=== PATIENT | female | born 1985 | race Caucasian/White ===

== ENCOUNTER 2018-01-29 07:05 | Inpatient (IN) | payer MEDICAID ==
[2018-01-29] MEDS ORDERED: OXYTOCIN 10 UNIT/ML VIAL ONE (07:32)
[2018-01-29] MEDS ORDERED: OXYTOCIN/NORMAL SALINE 20 UNIT/1,000 ML RTUINJ ONE (07:32)
[2018-01-29] MEDS ORDERED: LIDOCAINE 1% INJ-PF (10 MG/ML) 30 ML SDV ONE (07:32)
[2018-01-29] MEDS ORDERED: MISOPROSTOL 0.2 MG TABLET ONE (07:32)
[2018-01-29] MEDS ORDERED: PENICILLIN G-K 5 MILLION UNIT VIAL ONE (07:33)
[2018-01-29] MEDS ORDERED: EPHEDRINE SULFATE INJ 50 MG/1 ML AMPULE ONE (08:45)
[2018-01-29] MEDS ORDERED: FENTANYL/BUPIVACAINE/NS/PF 0 MCG/0 ML RTUINJ EPI ONE (08:45)
[2018-01-29] MEDS ORDERED: BUPIVACAINE HCL 0.5 % INJ/PF 30 ML SDV ONE (08:46)
[2018-01-29] MEDS ORDERED: METHYLERGONOVINE MALEATE INJ/PF 0.2 MG/1 ML AMPULE ONE (09:15)
[2018-01-29] MEDS ORDERED: DIPH/PERTUSS(ACELL)/TETANUS VAC/PF 0.5 ML SYR (>=10YO) IM PRN (09:29)
[2018-01-29] MEDS ORDERED: DIBUCAINE 1% OINTMENT 28 GM TP PRN (09:29)
[2018-01-29] MEDS ORDERED: METHYLERGONOVINE MALEATE INJ/PF 0.2 MG/1 ML AMPULE IM PRN (09:29)
[2018-01-29] MEDS ORDERED: BENZOCAINE/MENTHOL AEROSOL SPRAY 56 ML TOP PRN (09:29)
[2018-01-29] MEDS ORDERED: MEASLES,MUMPS&RUBELLA VACC/PF 0.5 ML VIAL SUBCUT PRN (09:29)
[2018-01-29] MEDS ORDERED: MISOPROSTOL 0.2 MG TABLET PR PRN (09:29)
[2018-01-29] MEDS ORDERED: OXYTOCIN/NORMAL SALINE 20 UNIT/1,000 ML RTUINJ IV PRN (09:29)
[2018-01-29 09:36] LABS: APPEARANCE,URINE CLEAR; BILIRUBIN,URINE NEGATIVE (NEGATIVE); GLUCOSE, URINE NEGATIVE (NEGATIVE); KETONES,URINE NEGATIVE (NEGATIVE); LEUKOCYTE ESTERASE,URINE NEGATIVE (NEGATIVE); NITRITE,URINE NEGATIVE (NEGATIVE); PROTEIN,URINE NEGATIVE (NEGATIVE); URINE SPECIFIC GRAVITY 1.004; UROBILINOGEN,URINE NEGATIVE mg/dL (<2.0)
[2018-01-29 09:37] LABS: COLOR,URINE STRAW
[2018-01-29] MEDS ORDERED: ACETAMINOPHEN WITH CODEINE #3 TABLET ONE (10:08)
[2018-01-29 10:13] LABS: URINE AMPHETAMINES SCREEN NEGATIVE; URINE BARBITURATES SCREEN NEGATIVE; URINE BENZODIAZEPINES SCREEN NEGATIVE; URINE MARIJUANA (THC) SCREEN NEGATIVE; URINE METHADONE SCREEN NEGATIVE; URINE PHENCYCLIDINE SCREEN NEGATIVE
[2018-01-29 10:27] LABS: URINE COCAINE SCREEN NEGATIVE
[2018-01-29 11:26] LABS: ABSOLUTE LYMPHOCYTES (AUTO) 0.9 10^3/uL (0.5-4.7); ABSOLUTE MONOCYTES (AUTO) 0.5 10^3/uL (0.1-1.4); BASOPHILS % (AUTO) 0.1 % (0-2); EOSINOPHILS % (AUTO) 0.1 % (0-6); HEMATOCRIT 34.8 % (36.0-47.0); HEMOGLOBIN 11.7 g/dL (12.0-15.5); LYMPHOCYTES % (AUTO) 5.1 % (13-45); MEAN CORPUSCULAR HEMOGLOBIN 32.6 pg (27.0-33.4); MEAN CORPUSCULAR HGB CONC 33.5 g/dL (32.0-36.0); MEAN CORPUSCULAR VOLUME 97 fl (80-97); MONOCYTES % (AUTO) 3.1 % (3-13); PLATELET COUNT 174 10^3/uL (150-450); RED BLOOD COUNT 3.58 10^6/uL (3.72-5.28); SEGMENTED NEUTROPHILS % (AUTO) 91.6 % (42-78); TOTAL CELLS COUNTED % (AUTO) 100 %; WHITE BLOOD COUNT 17.5 10^3/uL (4.0-10.5)
[2018-01-29] MEDS: PRENATAL VITAMIN W DHA CAPSULE PO SCH (13:55)
[2018-01-29] MEDS: FERROUS SULFATE 325 MG TABLET PO SCH ×2 (13:55→17:37)
[2018-01-29] MEDS: SENNOSIDES/DOCUSATE 8.6-50 MG 1 EACH TABLET PO SCH (13:55)
[2018-01-29] MEDS: DOCUSATE SODIUM 100 MG CAPSULE PO SCH ×2 (13:55→17:37)
[2018-01-29] MEDS: IBUPROFEN 800 MG TABLET PO SCH ×2 (14:01→22:32)
[2018-01-29] MEDS: ACETAMINOPHEN WITH CODEINE #3 TABLET PO PRN (20:13)
[2018-01-30] MEDS: IBUPROFEN 800 MG TABLET PO SCH ×3 (05:49→21:28)
[2018-01-30 07:07] LABS: HEMOGLOBIN 11.1 g/dL (12.0-15.5); MEAN CORPUSCULAR HEMOGLOBIN 33.8 pg (27.0-33.4); MEAN CORPUSCULAR HGB CONC 34.8 g/dL (32.0-36.0); MEAN CORPUSCULAR VOLUME 97 fl (80-97); PLATELET COUNT 180 10^3/uL (150-450); WHITE BLOOD COUNT 9.6 10^3/uL (4.0-10.5)
--- NOTE | 2018-01-30 09:21 | PDOC PROGRESS REPORT ---
Subjective Progress Note for:: 01/30/18 Subjective:: Patient states that she feels good; decreasing lochia. She denies shortness of breath, fever/chills, nausea/vomiting and chest pain. Patient is ambulate and voiding without difficulty. Reason For Visit: Physical Exam - Physical Exam Vital Signs: Temp Pulse Resp BP Pulse Ox 98.1 F 66 17 117/69 99 01/30/18 07:52 01/30/18 07:52 01/30/18 07:52 01/30/18 07:52 01/30/18 07:52 Intake & Output 01/29/18 01/30/18 01/31/18 06:59 06:59 06:59 Weight 81.6 kg General appearance: PRESENT: no acute distress Respiratory exam: PRESENT: clear to auscultation caterina GI/Abdominal exam: PRESENT: normal bowel sounds, soft - Fundus is firm and below umbilicus Extremities exam: ABSENT: calf tenderness, clubbing, full ROM, joint swelling, pedal edema, tenderness, +1 edema, +2 edema, other Result Laboratory Results: 01/30/18 06:43 01/29/18 01/29/18 01/29/18 07:19 11:00 11:00 WBC 17.5 H RBC 3.58 L Hgb 11.7 L Hct 34.8 L MCV 97 MCH 32.6 MCHC 33.5 RDW 13.0 Plt Count 174 Seg Neutrophils % 91.6 H Lymphocytes % 5.1 L Monocytes % 3.1 Eosinophils % 0.1 Basophils % 0.1 Absolute Neutrophils 16.0 H Absolute Lymphocytes 0.9 Absolute Monocytes 0.5 Absolute Eosinophils 0.0 Absolute Basophils 0.0 Urine Color STRAW Urine Appearance CLEAR Urine pH 7.0 Ur Specific [place] 1.004 Urine Protein NEGATIVE Urine Glucose (UA) NEGATIVE Urine Ketones NEGATIVE Urine Blood NEGATIVE Urine Nitrite NEGATIVE Ur Leukocyte Esterase NEGATIVE Blood Type A POSITIVE Antibody Screen NEGATIVE 01/30/18 06:43 WBC 9.6 RBC 3.30 L Hgb 11.1 L Hct 32.0 L MCV 97 MCH 33.8 H MCHC 34.8 RDW 13.0 Plt Count 180 Seg Neutrophils % Lymphocytes % Monocytes % Eosinophils % Basophils % Absolute Neutrophils Absolute Lymphocytes Absolute Monocytes Absolute Eosinophils Absolute Basophils Urine Color Urine Appearance Urine pH Ur Specific [place] Urine Protein Urine Glucose (UA) Urine Ketones Urine Blood Urine Nitrite Ur Leukocyte Esterase Blood Type Antibody Screen Assessment & Plan - Diagnosis (1) Delivery normal Is this a current diagnosis for this admission?: Yes (2) Limited care in third trimester Is this a current diagnosis for this admission?: Yes (3) Smoker Is this a current diagnosis for this admission?: Yes - Time Time Spent with patient: Less than 15 minutes Smoking Cessation Education: 3 to 10 minutes Medications reviewed and adjusted accordingly: Yes Within: within 48 hours - Plan Summary Plan Summary: Plan: 1. Continue care
[2018-01-30] MEDS: PRENATAL VITAMIN W DHA CAPSULE PO SCH (11:02)
[2018-01-30] MEDS: SENNOSIDES/DOCUSATE 8.6-50 MG 1 EACH TABLET PO SCH (11:02)
[2018-01-30] MEDS: DOCUSATE SODIUM 100 MG CAPSULE PO SCH ×2 (11:03→18:31)
[2018-01-30] MEDS: FERROUS SULFATE 325 MG TABLET PO SCH ×2 (11:03→18:31)
[2018-01-30] MEDS: ACETAMINOPHEN WITH CODEINE #3 TABLET PO PRN ×2 (11:18→21:30)
[2018-01-31] MEDS: IBUPROFEN 800 MG TABLET PO SCH ×2 (05:21→15:33)
[2018-01-31] MEDS: ACETAMINOPHEN WITH CODEINE #3 TABLET PO PRN ×3 (07:09→15:33)
--- NOTE | 2018-01-31 09:25 | PDOC DISCHARGE SUMMARY ---
Final Diagnosis Discharge Date: 01/31/18 - PP Day #2, doing well, breast and bottle feeding. A+ , rubella Immune - Final Diagnosis (1) Delivery normal Is this a current diagnosis for this admission?: Yes (2) Limited care in third trimester Is this a current diagnosis for this admission?: Yes (3) Smoker Is this a current diagnosis for this admission?: Yes Discharge Data - Discharge Medication Prescriptions: Ibuprofen [Motrin 800 mg Tablet] 800 mg PO Q8 #60 tablet Home Medications: No122/Iron/Folic Acid [ Multi Tablet] 1 each PO DAILY 01/29/18 Ibuprofen [Motrin 800 mg Tablet] 800 mg PO Q8 #60 tablet 01/31/18 Reason(s) for Admission: Onset of Labor Procedures: Ultrasound Intrapartum Procedure(s): Spontaneous Vaginal Delivery - Diagnosis Test Laboratory: Temp Pulse Resp BP Pulse Ox 97.8 F 69 17 127/71 H 97 01/31/18 07:36 01/31/18 07:36 01/31/18 07:36 01/31/18 07:36 01/31/18 07:36 01/29/18 01/29/18 01/30/18 07:19 11:00 06:43 RBC 3.58 L 3.30 L Hgb 11.7 L 11.1 L Hct 34.8 L 32.0 L Urine Opiates Screen NEGATIVE - Discharge information/Instructions Discharge Activity: Activity As Tolerated, Pelvic Rest Discharge Diet: As Tolerated, Regular Disposition: HOME, SELF-CARE Follow up with: [facility] in: 4
[2018-01-31] MEDS: DOCUSATE SODIUM 100 MG CAPSULE PO SCH ×2 (11:06→17:52)
[2018-01-31] MEDS: FERROUS SULFATE 325 MG TABLET PO SCH ×2 (11:06→17:52)
[2018-01-31] MEDS: PRENATAL VITAMIN W DHA CAPSULE PO SCH (11:06)
[2018-01-31] MEDS: SENNOSIDES/DOCUSATE 8.6-50 MG 1 EACH TABLET PO SCH (11:06)
[2018-01-31 12:44] VITALS: BP 114/71
--- NOTE | 2018-02-09 10:24 | Delivery Summary ---
Del Sum A-C Datetime Report Generated by CPN: 02/09/2018 10:23 DELIVERY PERSONNEL DELIVERY PERSONNEL: [id number] Delivery Doctor:: Myrtle Kay CNM Labor and Delivery Nurse:: OR Staff Labor and Delivery Nurse:: Tara Rodriguez RN Nursery Nurse:: Kyra Ireland RN Nursery Nurse:: Lee WARE LPN Student Observers:: MADELEINE DOMÍNGUEZ, STUDENT Licensing Representative/MUSICAL INSTRUMENT MAKER: Elsie Dawkins CNA II Licensing Representative/MUSICAL INSTRUMENT MAKER: Kyra Miller, BOILERMAKER HELPER MATERNAL INFORMATION Delivery Anesthesia: None Medications After Delivery: Pitocin Bolus-Please Comment; Pitocin Drip 20 Units/1000ml NSS; Cytotec 600mcg Per Rectum/Vagina Maternal Complications: Other Complication Details: NO PNC AFTER 29 WEEKS Provider Comments: from OP to ARNAUD over intact perineum, placed on mothers abd, cord clamped and cut by dad after 2 minutes, Spont delivery of grossly nl intact placenta, cord blood obtained, FFFM, mild uterine atony, cytotec 600mcg, uterine massage, passing some clots with continued atony, massage and Methergine 0,2mg IM baby and mom remains in recovery in stable condition FFFM LABOR SUMMARY EDC: 02/02/2018 00:00 No. Babies in Womb: 1 Attempted: No Labor Anesthesia: None LABOR INFORMATION Reason for Induction: Not Applicable Onset of Labor: 01/29/2018 04:30 Complete Dilatation: 01/29/2018 08:51 Oxytocin: N/A Group B Beta Strep: UNKNOWN Antibiotics # of Doses: 1 Antibiotics Time of Last Dose: 0748 Steroids Given: None Reason Steroids Not Administered: Not Applicable MEMBRANES Membranes Rupture Method: Artificial Rupture of Membranes: 01/29/2018 08:51 Length of Rupture (hr): 0.20 Amniotic Fluid Color: Clear Amniotic Fluid Amount: Small Amniotic Fluid Odor: None STAGES OF LABOR Stage 1 hr: 4 Stage 1 min: 21 Stage 2 hr: 0 Stage 2 min: 12 Stage 3 hr: 0 Stage 3 min: 4 Total Time in Labor hr: 4 Total Time in Labor min: 37 VAGINAL DELIVERY Episiotomy: None Laceration #1: None Laceration Extension #1: N/A Other Laceration: SUPERFICIAL ABRASIONS Laceration Repair: Not Applicable Sponge Count Correct: N/A Sharps Count Correct: N/A CSECTION DELIVERY CSection Incision: N/A BABY A INFORMATION Infant Delivery Date/Time: 01/29/2018 09:03 Method of Delivery: Vaginal Method of Delivery: Vaginal Born in Route : No : N/A Forceps: N/A Vacuum Extraction: N/A Shoulder Dystocia : No PRESENTATION/POSITION BABY A Presentation: Cephalic Cephalic Presentation: Vertex Vertex Position: DIRECT OP Breech Presentation: N/A PLACENTA INFORMATION BABY A Placenta Delivery Time : 01/29/2018 09:07 Placenta Method of Delivery: Spontaneous Placenta Status: Delivered SCORES BABY A Heart Rate 1 min: >100 bpm Resp Effort 1 min: Good Cry Reflex Irritability 1 min: Cough or Sneeze or Pulls Away Muscle Tone 1 min: Some Flexion of Extremities Color 1 min: Body [place], Extremities Blue Resuscitation Effort 1 min: Tactile Stimulation SCORE 1 MIN: 8 Heart Rate 5 min: >100 bpm Resp Effort 5 min: Good Cry Reflex Irritability 5 min: Cough or Sneeze or Pulls Away Muscle Tone 5 min: Active Motion Color 5 min: Body [place], Extremities Blue Resuscitation Effort 5 min: Tactile Stimulation SCORE 5 MIN: 9 INFORMATION BABY A Gestational Age at Delivery: 39.3 Gestational Status: Full Term- 39- 40.6 Weeks Outcome : Liveborn Infant Condition : Stable Sex: Female Sex: Female IDENTIFICATION BABY A Verification Date/Time: 01/29/2018 09:34 ID Band Number: [id number] Mother's Name Verified: Yes RN Verifying : Lay RAYA rn/ Blaire BARR RN WEIGHT/LENGTH BABY A Birthweight (gm): 2322 Infant Weight (lb): 5 Weight (oz): 2 Infant Length (in): 17.00 Infant Length (cm): 43.18 CORD INFORMATION BABY A No. Cord Vessels: 3 Nuchal Cord : N/A Cord Blood Taken: Yes-For Storage (Mom's Blood type +) Infant Suction: None ASSESSMENT BABY A Complications: Multiple Variable Decels Physical Findings at Delivery: Within Normal Limits Infant Respirations: Appears Normal Skin to Skin: Yes Skin to Skin: Yes Bakery Helper/ALS Called : No Infant Care By: Lee IRELAND, RN/ E JEANIE, DREDGE DECKHAND Transferred To: Remains with Mother BABY B INFORMATION : N/A
== END 2018-01-31 20:45 | disposition home or self-care (01) | DRG 807 ==
LOC: LC 07:05 → LR 07:36 → 2S 12:19
PROVIDERS: ADMIT Obstetrics & Gynecology; ATTEND Obstetrics & Gynecology
PROC: 10E0XZZ Delivery of Products of Conception, External Approach (ICD-10-PCS; principal; 2018-01-29)
PROC: 4A1HXCZ Monitoring of Products of Conception, Cardiac Rate, External Approach (ICD-10-PCS; 2018-01-29)
DX: O99.334 Smoking (tobacco) complicating childbirth (principal); Z37.0 Single live birth; O76 Abnormality in fetal heart rate and rhythm complicating labor and delivery; O62.2 Other uterine inertia; O70.0 First degree perineal laceration during delivery; Z3A.39 39 weeks gestation of pregnancy
CPT/HCPCS: 36415; 80307; 81005; 85025; 85027; 86701; 86850; 86900; 86901; J2210; J2540; J2590; J3010; J3490

== ENCOUNTER 2018-07-25 16:58 | Emergency (ER) | payer MEDICAID, OTHER ==
[2018-07-25 17:45] VITALS: BP 122/76
--- NOTE | 2018-07-25 17:50 | ER Document Report ---
ED Medical Screen (RME) - General Chief Complaint: Vag Bleeding, +preg <12wks Stated Complaint: VAGINAL BLEEDING Time Seen by Provider: 07/25/18 17:44 Primary Care Provider: MAGGIE GASPAR MD [Primary Care Provider] - Follow up as needed Mode of Arrival: Ambulatory Information source: Patient Notes: 33-year-old female presents to ED for complaint of vaginal bleeding since this a.m. She states she had a positive home test. Her last menstrual period was in April. She is having some discomfort also. She is 5 para 2. She had 2 D&Cs tonsils and adenoids appendectomy and wisdom teeth removed. She states she is a positive. States she does smoke a pack per day. She lives with her significant other and children. Patient is alert oriented respirations regular and unlabored speaking with full sentences and walks with even steady gait. I have greeted and performed a rapid initial assessment of this patient. A comprehensive ED assessment and evaluation of the patient, analysis of test results and completion of medical decision making process will be conducted by an additional ED providers. Dictation of this chart was performed using voice recognition software; therefore, there may be some unintended grammatical errors. TRAVEL OUTSIDE OF THE [place] IN LAST 30 DAYS: No - Related Data Allergies/Adverse Reactions: No Known Allergies Allergy (Verified 07/25/18 16:59) Physical Exam - Vital signs Vitals: Temp Pulse Resp BP Pulse Ox 98.9 F 71 16 122/76 99 07/25/18 17:43 07/25/18 17:43 07/25/18 17:43 07/25/18 17:43 07/25/18 17:43 Course - Vital Signs Vital signs: Temp Pulse Resp BP Pulse Ox 98.9 F 71 16 122/76 99 07/25/18 17:43 07/25/18 17:43 07/25/18 17:43 07/25/18 17:43 07/25/18 17:43 Doctor's Discharge - Discharge Referrals: MAGGIE GASPAR MD [Primary Care Provider] - Follow up as needed
[2018-07-25 18:57] LABS: ABSOLUTE EOSINOPHILS # (AUTO) 0.1 10^3/uL (0.0-0.6); ABSOLUTE LYMPHOCYTES (AUTO) 1.5 10^3/uL (0.5-4.7); ABSOLUTE MONOCYTES (AUTO) 0.5 10^3/uL (0.1-1.4); ABSOLUTE NEUT (AUTO) 5.1 10^3/uL (1.7-8.2); BASOPHILS % (AUTO) 0.3 % (0-2); EOSINOPHILS % (AUTO) 0.8 % (0-6); HEMATOCRIT 40.7 % (36.0-47.0); HEMOGLOBIN 13.7 g/dL (12.0-15.5); LYMPHOCYTES % (AUTO) 21.2 % (13-45); MEAN CORPUSCULAR HEMOGLOBIN 32.2 pg (27.0-33.4); MEAN CORPUSCULAR HGB CONC 33.6 g/dL (32.0-36.0); MEAN CORPUSCULAR VOLUME 96 fl (80-97); MONOCYTES % (AUTO) 7.2 % (3-13); PLATELET COUNT 246 10^3/uL (150-450); RED BLOOD COUNT 4.25 10^6/uL (3.72-5.28); RED CELL DISTRIBUTION WIDTH 14.6 % (11.5-14.0); SEGMENTED NEUTROPHILS % (AUTO) 70.5 % (42-78); TOTAL CELLS COUNTED % (AUTO) 100 %; WHITE BLOOD COUNT 7.2 10^3/uL (4.0-10.5)
[2018-07-25 19:16] LABS: APPEARANCE,URINE SLIGHTLY-CLOUDY; BILIRUBIN,URINE NEGATIVE (NEGATIVE); CALCIUM OXALATE CRYSTALS,URINE MANY /HPF; COLOR,URINE YELLOW; GLUCOSE, URINE NEGATIVE (NEGATIVE); KETONES,URINE NEGATIVE (NEGATIVE); LEUKOCYTE ESTERASE,URINE NEGATIVE (NEGATIVE); NITRITE,URINE NEGATIVE (NEGATIVE); PROTEIN,URINE NEGATIVE (NEGATIVE); URINE SPECIFIC GRAVITY 1.029
[2018-07-25 19:18] LABS: ALANINE AMINOTRANSFERASE 24 U/L (9-52); ALBUMIN 4.4 g/dL (3.5-5.0); ALKALINE PHOSPHATASE 87 U/L (38-126); ANION GAP 12 (5-19); ASPARTATE AMINO TRANSFERASE 19 U/L (14-36); BILIRUBIN,DIRECT 0.2 mg/dL (0.0-0.4); BILIRUBIN,TOTAL 0.2 mg/dL (0.2-1.3); BLOOD UREA NITROGEN 17 mg/dL (7-20); CALCIUM 9.7 mg/dL (8.4-10.2); CARBON DIOXIDE 23 mmol/L (22-30); CHLORIDE 106 mmol/L (98-107); GLUCOSE 97 mg/dL (75-110); POTASSIUM 3.9 mmol/L (3.6-5.0); TOTAL PROTEIN 7.5 g/dL (6.3-8.2)
--- NOTE | 2018-07-25 20:46 | RADIOLOGY REPORT (SQ) ---
EXAM DESCRIPTION: US TRANSVAGINAL COMPLETED DATE/TME: 07/25/2018 17:48 CLINICAL HISTORY: Pelvic pain, vaginal bleeding, COMPARISON: None. FINDINGS: There is an anechoic saclike structure measuring 1 x 1 x 1.2 cm within the uterus which could represent an early intrauterine . No yolk sac or pole visualized. There is a 5.8 x 4.6 x 4.1 cm non-hypervascular mass adjacent to the uterus which suggests an exophytic fibroid. An adnexal mass is considered less likely however not excluded. The right ovary measured 3.2 x 1.9 x 2.7 cm. There is a 1.2 x 1.1 cm complex cyst within the right ovary which could represent a hemorrhagic cyst. There is no sonographic evidence of ovarian torsion. The left ovary measured 2.6 x 1.8 x 1.9 cm. 1.2 cm area of heterogeneous echotexture within the left ovary could represent a complex cyst. IMPRESSION: 1.2 cm anechoic structure within the uterus without discrete yolk sac or pole could represent an early intrauterine . Other etiologies including a nonviable is a consideration. Correlation with serial beta-hCG levels recommended and follow-up ultrasound as indicated. Exophytic uterine mass/fibroid. An adnexal mass is considered less likely however not excluded. Recommend follow-up.
== END 2018-07-25 22:10 | disposition left against medical advice (07) ==
LOC: ER 16:58
DX: O20.9 Hemorrhage in early pregnancy, unspecified (principal); O99.331 Smoking (tobacco) complicating pregnancy, first trimester; F17.200 Nicotine dependence, unspecified, uncomplicated; Z3A.00 Weeks of gestation of pregnancy not specified; Z53.20 Procedure and treatment not carried out because of patient's decision for unspecified reasons
CPT/HCPCS: 36415; 76817; 80053; 81001; 84702; 85025; 93976; 99281